=== PATIENT | female | born 1985 | race Caucasian/White ===

== ENCOUNTER 2018-04-06 11:43 | Emergency (ER) | payer OTHER ==
[2018-04-06] MEDS ORDERED: Ketorolac INJ* 30 MG/ML 1 ML VIAL IV PUSH ONE (12:46)
[2018-04-06] MEDS ORDERED: NS 0.9% 1000 ML* 1,000 ML IV ONE (12:46)
[2018-04-06] MEDS ORDERED: diPHENhydraMINE IV* 50 MG/ML 1 ml VIAL (BENADRYL) IV ONE (12:47)
--- NOTE | 2018-04-06 12:52 | UC ---
Headache HPI - HPI Summary HPI Summary: pt is c/o "a migraine headache". she describes it as throbbing behind her R eye and R back of head. states hx of same and that this is typical pattern for her. she ran out of her imitrex. she tried to call her pcp and was told needs to be re-seen for a refill and they are closing for the day so she came here. denies any current or recent illness, fever and injury. also denies abrupt or worst headache. she is breast feeding. tx tylenol [employer]. - History Of Current Complaint Chief Complaint: UCHeadache Stated Complaint: HEADACHE Time Seen by Provider: 04/06/18 12:22 Hx Obtained From: Patient Hx Last Menstrual Period: 04/05/18 Pain Intensity: 8 Timing: Constant Character: Typical Headache, Migraine Aggravating Factor(s): Bright Lights, Other - noise Allevating Factor(s): Nothing Associated Signs And Symptoms: Positive: Nausea - noise and periods - Risk Factors SAH Risk Factors: Negative Meningitis Risk Factors: Negative SDH Risk Factors: Negative - Allergies/Home Medications Allergies/Adverse Reactions: Allergies Allergy/AdvReac Type Severity Reaction Status Date / Time Tetracyclines Allergy Rash and Verified 04/06/18 12:13 Swelling Home Medications: Home Medications Acetaminophen TAB* [Tylenol TAB*] 650 mg PO Q4H PRN 04/06/18 [History Confirmed 04/06/18] Vitamin TAB* 1 tab PO DAILY 04/06/18 [History Confirmed 04/06/18] PMH/Surg Hx/FS Hx/Imm Hx Neurological History: Migraine - Surgical History Surgical History: Yes Surgery Procedure, Year, and Place: TONSILS/ADENOIDS. LASIK EYE SURGERY FOR CORRECTIVE LENSES. EAR TUBES CHILD - Family History Known Family History: Positive: Other - migraines - Social History Lives: With Family Alcohol Use: None Substance Use Type: None Smoking Status (MU): Never Smoked Tobacco - Immunization History Vaccination Up to Date: Yes Review of Systems Constitutional: Negative Skin: Negative Eyes: Negative ENT: Negative Respiratory: Negative Cardiovascular: Negative Gastrointestinal: Nausea Genitourinary: Negative Motor: Negative Neurovascular: Negative Musculoskeletal: Negative Neurological: Headache Psychological: Negative Is Patient Immunocompromised?: No All Other Systems Reviewed And Are Negative: Yes Physical Exam Triage Information Reviewed: Yes Appearance: Well-Appearing - but lying room with lights dimmed Vital Signs: Initial Vital Signs Temp 98 F 04/06/18 12:10 Pulse 70 04/06/18 12:10 Resp 16 04/06/18 12:10 BP 120/81 04/06/18 12:10 Pulse Ox 100 04/06/18 12:10 Vital Signs Reviewed: Yes Eyes: Positive: Conjunctiva Clear, Other: - PERRL, EOMI ENT: Positive: Pharynx normal, TMs normal. Negative: Nasal congestion, Nasal drainage Neck: Positive: Supple, Nontender, No Lymphadenopathy. Negative: Nuchal Rigidity Respiratory: Positive: Lungs clear, Normal breath sounds Cardiovascular: Positive: RRR, No Murmur Abdomen Description: Positive: Nontender, No Organomegaly, Soft Bowel Sounds: Positive: Present Musculoskeletal: Positive: ROM Intact Neurological: Positive: Alert, Other: - CN 2-12 grossly intact. 5/5 strength and 2+ reflexes x4. Steady gait. Psychological: Positive: Age Appropriate Behavior Skin Exam: Normal Re-Evaluation - Re-Evaluation First Eval Re-Evaluation Time: 13:40 Change: Improved - PT NOTES HEADACHE AND NAUSEA ARE MUCH IMPROVED. SHE IS REQUESTING DISCHARGE TO HOME TO REST. Headache Course/Dx - Course Course Of Treatment: no concern for intracranial bleed, mass or infection. hx and PE supports migraine headache. IV access failed thus will tx IM medications. pt improved post tx and requesting d/c plus a neurology referal because the headaches have gotten much more frequent. pt's is driving her home. - Differential Dx/Diagnosis Provider Diagnoses: migraine headache Discharge - Sign-Out/Discharge Documenting (check all that apply): Patient Departure All imaging exams completed and their final reports reviewed: No Studies - Discharge Plan Condition: Improved Disposition: HOME Patient Education Materials: Migraine Headache (ED) Referrals: Yoni Lombardi MD [Primary Care Provider] - 3 Days Catherine Schmitz MD [Medical Doctor] - As Soon As Possible - Billing Disposition and Condition Condition: IMPROVED Disposition: Home
[2018-04-06] MEDS ORDERED: Ketorolac INJ* 60 MG/2 ML VIAL IM ONE (13:11)
[2018-04-06] MEDS ORDERED: diPHENhydraMINE IV* 50 MG/ML 1 ml VIAL (BENADRYL) IM ONE (13:12)
[2018-04-06 14:04] VITALS: BP 126/83
== END 2018-04-06 14:10 | disposition home or self-care (01) ==
LOC: UCCORT 11:43
DX: G43.909 Migraine, unspecified, not intractable, without status migrainosus (principal); Z88.3 Allergy status to other anti-infective agents
CPT/HCPCS: 96372; 99211; G0463; J1200; J1885